=== PATIENT | male | born 1985 | race Two or more races ===

== ENCOUNTER 2016-08-11 06:17 | Emergency (ER) | payer OTHER ==
[~2016-08-11] VITALS: Ht 165.1 cm; Wt 90.7 kg
[2016-08-11] MEDS ORDERED: KETOROLAC TROMETHAMINE INJ 30 MG/ML VIAL ONE (06:44)
[2016-08-11] MEDS ORDERED: ONDANSETRON HCL/PF 4 MG/2 ML VIAL ONE (06:44)
[2016-08-11] MEDS ORDERED: IV SET PRIMARY 1 EA INFUS.SET MC ONE (06:45)
[2016-08-11] MEDS ORDERED: IV NS 0.9% 1,000 ML ONE (06:45)
[2016-08-11 06:52] LABS: BASOPHILS % (AUTO) 0.4 % (0.0-2.0); DIFF TOTAL % 100 %; EOSINOPHILS # (AUTO) 0.1 /CMM (0.0-0.7); EOSINOPHILS % (AUTO) 0.9 % (0.0-6.0); HEMATOCRIT 48 % (39-51); HEMOGLOBIN 16.2 g/dL (13.5-17.5); LYMPHOCYTES # (AUTO) 2.5 /CMM (0.8-4.8); LYMPHOCYTES % (AUTO) 32.4 % (20.0-44.0); MEAN CORPUSCULAR HEMOGLOBIN 30 PG (26.0-33.0); MEAN CORPUSCULAR HGB CONC 34 g/dl (31.0-36.0); MEAN CORPUSCULAR VOLUME 89 fL (80-96); MONOCYTES # (AUTO) 0.4 /CMM (0.1-1.30); MONOCYTES % (AUTO) 4.8 % (2.0-12.0); NEUTROPHILS # (AUTO) 4.8 /CMM (1.8-8.9); NEUTROPHILS % (AUTO) 61.5 % (43.0-81.0); PLATELET COUNT (AUTO) 205 /CMM (150-450); WHITE BLOOD COUNT (AUTO) 7.8 K/uL (4.3-11.0)
[2016-08-11] MEDS ORDERED: ONDANSETRON HCL/PF 4 MG/2 ML VIAL IVP ONE (07:00)
[2016-08-11] MEDS ORDERED: IV NS 0.9% 1,000 ML BAG IV ONE (07:00)
[2016-08-11] MEDS ORDERED: KETOROLAC TROMETHAMINE INJ 30 MG/ML VIAL IV ONE (07:00)
[2016-08-11 07:04] LABS: ANION GAP 14 (5-14); CALCIUM, SERUM 8.8 mg/dL (8.5-10.1); CARBON DIOXIDE 26 mmol/L (21-32); CHLORIDE 101 mmol/L (98-107); CREATININE 1.3 mg/dL (0.6-1.3); GFR 65 mL/min (>60); GLUCOSE 129 mg/dL (74-106); POTASSIUM 4.4 mmol/L (3.5-5.1); SODIUM SERUM 136 mmol/L (136-145); UREA NITROGEN, BLOOD 15 mg/dL (7-18)
[2016-08-11 07:11] LABS: INR 0.94 (0.87-1.13); PROTHROMBIN TIME 10.2 SECS (9.5-12.7)
[2016-08-11 07:12] LABS: TROPONIN I < 0.017 ng/mL (0.00-0.056)
[2016-08-11] MEDS ORDERED: LORAZEPAM INJ 2 MG/ML VIAL ONE (07:56)
[2016-08-11] MEDS ORDERED: LORAZEPAM INJ 2 MG/ML VIAL IV ONE (08:00)
[2016-08-11 08:54] VITALS: BP 122/70
== END 2016-08-11 09:03 | disposition home or self-care (01) ==
LOC: ER 06:21
DX: R07.9 Chest pain, unspecified (principal)
CPT/HCPCS: 36415; 71010; 80048; 84484; 85025; 85730; 93005; 96361; 96374; 96375; 99285; A4606; J1885; J2060; J2405; J7030; Z7610

== ENCOUNTER 2016-11-11 04:31 | Emergency (ER) | payer OTHER ==
[~2016-11-11] VITALS: Ht 165.1 cm; Wt 99.8 kg
--- NOTE | 2016-11-11 04:55 | NUR ---
to bed 3 ambulatory c/o L sided chest pain with L arm numbness since 0300 and headache. pt aaox4 no acute distress noted, resp even and unlabored. place pt on cardiac monitoring, continuous pox, o2@2l/nc. pending er md rico.
--- NOTE | 2016-11-11 05:08 | NUR ---
fiona aponte at bedside to trisha vargas.
[2016-11-11] MEDS ORDERED: ONDANSETRON HCL/PF 4 MG/2 ML VIAL ONE (05:28)
[2016-11-11] MEDS ORDERED: ASPIRIN 81 MG TAB.CHEW ONE (05:28)
[2016-11-11] MEDS ORDERED: HYDROMORPHONE 1 MG/1 ML DISP.SYRIN ONE (05:28)
[2016-11-11] MEDS ORDERED: NITROGLYCERIN 0.4 MG/TAB BOTTLE ONE (05:28)
[2016-11-11] MEDS ORDERED: NITROGLYCERIN PACKET 1 GM PACKET ONE (05:29)
[2016-11-11] MEDS ORDERED: ONDANSETRON HCL/PF 4 MG/2 ML VIAL IV ONE (05:30)
[2016-11-11] MEDS ORDERED: NITROGLYCERIN PACKET 1 GM PACKET TD ONE (05:30)
[2016-11-11] MEDS ORDERED: ASPIRIN 81 MG TAB.CHEW PO ONE (05:30)
[2016-11-11] MEDS ORDERED: HYDROMORPHONE 1 MG/1 ML DISP.SYRIN IV ONE (05:30)
[2016-11-11 05:33] LABS: BASOPHILS % (AUTO) 0.5 % (0.0-2.0); EOSINOPHILS # (AUTO) 0.2 /CMM (0.0-0.7); HEMATOCRIT 47 % (39-51); LYMPHOCYTES # (AUTO) 3.1 /CMM (0.8-4.8); LYMPHOCYTES % (AUTO) 37.6 % (20.0-44.0); MEAN CORPUSCULAR HEMOGLOBIN 30 PG (26.0-33.0); MEAN CORPUSCULAR HGB CONC 34 g/dl (31.0-36.0); MEAN CORPUSCULAR VOLUME 88 fL (80-96); MONOCYTES # (AUTO) 0.6 /CMM (0.1-1.30); MONOCYTES % (AUTO) 7.1 % (2.0-12.0); NEUTROPHILS # (AUTO) 4.4 /CMM (1.8-8.9); NEUTROPHILS % (AUTO) 52.8 % (43.0-81.0); PLATELET COUNT (AUTO) 188 /CMM (150-450); RDW COEFFICIENT OF VARIATION 13.5 (11.5-15.0); RED BLOOD CELL COUNT(AUTO) 5.37 MIL/uL (4.5-6.0); WHITE BLOOD COUNT (AUTO) 8.3 K/uL (4.3-11.0)
--- NOTE | 2016-11-11 05:38 | NUR ---
pt medicated as ordered. pt refuse pain meds and zofran ordered by fiona aponte.
--- NOTE | 2016-11-11 05:40 | NUR ---
PT STATES HIS PAIN IS A 3/10 AND DOES NOT WANT PAIN MEDICINE AT THIS TIME, MD MADE AWARE, MEDICATION WASTED, WILL CONTINUE TO MONITOR.
[2016-11-11 05:44] LABS: CALCIUM, SERUM 8.8 mg/dL (8.5-10.1); CARBON DIOXIDE 28 mmol/L (21-32); CHLORIDE 104 mmol/L (98-107); CREATININE 1.4 mg/dL (0.6-1.3); GFR 60 mL/min (>60); GLUCOSE 119 mg/dL (74-106); POTASSIUM 4.8 mmol/L (3.5-5.1); SODIUM SERUM 140 mmol/L (136-145); UREA NITROGEN, BLOOD 18 mg/dL (7-18)
[2016-11-11 05:52] LABS: TROPONIN I < 0.017 ng/mL (0.00-0.056)
[2016-11-11 05:59] LABS: ALANINE AMINOTRANSFERASE 152 U/L (12-78); ALBUMIN 3.9 g/dL (3.4-5.0); ALKALINE PHOSPHATASE 87 U/L (46-116); ASPARTATE AMINOTRANSFERASE 44 U/L (15-37); BILIRUBIN,DIRECT 0.1 mg/dL (0.0-0.2); BILIRUBIN,TOTAL 0.4 mg/dL (0.2-1.0); TOTAL PROTEIN, SERUM 7.7 g/dL (6.4-8.2)
[2016-11-11 06:00] LABS: B-TYPE NATRIURETIC PEPTIDE < 5 PG/ML (0-125)
--- NOTE | 2016-11-11 07:16 | NUR ---
Report given to Vandana Marie.
[2016-11-11 09:18] VITALS: BP 112/60
--- NOTE | 2016-11-11 09:18 | NUR ---
Patient discharged to home in stable condition. Written and verbal after care instructions given. Patient verbalizes understanding of instruction.IV removed. Catheter intact and site benign. Pressure and 4x4 applied to site. No bleeding noted.
== END 2016-11-11 09:20 | disposition home or self-care (01) ==
LOC: ER 04:31
DX: R07.9 Chest pain, unspecified (principal); R51 Headache
CPT/HCPCS: 36415; 71010-TC; 80048-TC; 80076-TC; 83880; 84484-TC; 85025-TC; A4606; J1170; J2405; Z7610

== ENCOUNTER 2016-12-16 23:06 | Emergency (ER) | payer OTHER ==
[~2016-12-16] VITALS: Ht 165.1 cm; Wt 108.9 kg
[2016-12-16 23:16] VITALS: BP 125/80
== END 2016-12-17 00:07 | disposition home or self-care (01) ==
LOC: ER 23:09
DX: Z00.8 Encounter for other general examination (principal)
CPT/HCPCS: 74000; 99283; A4606; Z7610